=== PATIENT | male | born 1950 | race Caucasian/White ===

== ENCOUNTER → 2016-11-13 | Outpatient (CLI) | payer MEDICARE, OTHER ==
--- NOTE | 2016-11-13 12:08 | FL ---
EXAMINATION TYPE: FL barium swallow w video DATE OF EXAM: 11/13/2016 MODIFIED SWALLOW / DEGLUTITION STUDY CLINICAL HISTORY: Dysphagia. History of throat cancer surgically treated 3 years ago with completed c hemotherapy one year ago. TECHNIQUE: Deglutition study is performed utilizing thin liquid barium, honey and nectar thick liqui d barium, barium thick applesauce, and barium coated cracker. A total of 1 minute 54 seconds of fluor oscopic time was utilized during procedure. COMPARISON: None. FINDINGS: The oral and pharyngeal phases show satisfactory initiation with poor epiglottis inversion with all modalities tested. Normal mastication is seen with solid modalities tested. There is singl e episode of deep penetration with thin liquid barium that clears rapidly. No aspiration is evident w ith any modality tested. There is mild to severe pharyngeal residue appreciated more prominent with m ore viscous modalities. Some improvement is seen with chin tuck procedure in the residuals. IMPRESSION: No aspiration is evident. Mild to severe pharyngeal residuals noted. Poor propagation may be related to treated neoplasm or COPD. Please refer to speech therapist notes for further details i f necessary.
== END | disposition home or self-care (01) ==
LOC: RADFLMAIN 11:15
PROVIDERS: ATTEND Otolaryngology
DX: R13.10 Dysphagia, unspecified (principal)
CPT/HCPCS: 74230

== ENCOUNTER → 2017-05-04 | Outpatient (CLI) | payer MEDICARE, OTHER ==
--- NOTE | 2017-05-05 13:17 | PE ---
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 Patient received chemotherapy, unsure of date. Previous mouth and throat biopsy also report ed by the patient. TECHNIQUE: Following the intravenous administration of 13.08 mCi of F-18 FDG, coned-down images of the head and neck are performed followed by whole body images from the skull base to the midthigh. I mages are reviewed on the computer in the coronal, axial, and sagittal planes. Reconstructed rotatin g images are created on independent workstation and reviewed on the computer. A localization and at tenuation correction CT is performed in conjunction with the PET scan. Glucose level: 109 mg/dL CTDI: 2.1 / 1.58 mGy DLP: 63.3 / 140.16 mGy-cm COMPARISON: 02/26/2015 FINDINGS: PET: There is new nodularity within the right vallecular space suspected to represent lingual tonsillar hy pertrophy as there is no abnormal FDG uptake seen here. Symmetric uptake at the vocal folds likely product of phonation. No abnormal FDG uptake seen within t he neck. Normal physiologic FDG uptake throughout the chest, abdomen, and pelvis. ATTENUATION CORRECTION CT: Mild mucosal thickening throughout the ethmoid air cells. Mastoid air cells appear clear. No cervical adenopathy seen. There is some stranding throughout the subcutaneous fat of the neck suggesting post radiation therapy change. No cervical lymphadenopathy. Heart is normal size without pericardial effusion. Mild coronary vessel calcifications are present in remarkable for coronary artery disease. Aorta is normal caliber with mild atherosclerotic calcifica tions and conventional arch vessel branching anatomy. No thoracic lymphadenopathy. Mild centrilobular emphysema. Biapical pleural parenchymal scarring. Mild diffuse bronchial wall thic kening. Strandy atelectasis posterior left base. No consolidation or pleural effusion. Trace bilatera l gynecomastia. No dilated small bowel, free fluid, free air. [id number] atherosclerotic calcifications within the abdominal aorta. Limited intra-abdominal fat makes assessment for lymphadenopathy difficult. No o bvious abnormality seen. Moderate stool burden. Bladder urine distended. Pelvic phleboliths. Prostate gland appears mildly enlarged measuring 4.2 cm. Bones: Degenerative changes lower lumbar spine and endplate spondylosis throughout the remaining lumb ar spine as well as the mid and lower thoracic spine. IMPRESSION: 1. New nodularity within the right vallecular space. Suspect lingual tonsillar hypertrophy as there i s no discrete hypermetabolism here. The lack of FDG uptake makes neoplasm unlikely. Recommend direct visualization to confirm. 2. Otherwise, no CT or metabolic evidence for locoregional recurrence or metastatic disease. 3. Incidental: COPD with mild emphysema and moderate stool burden.
== END | disposition home or self-care (01) ==
LOC: RADPETMAIN 08:51
PROVIDERS: ATTEND Otolaryngology
DX: C13.9 Malignant neoplasm of hypopharynx, unspecified (principal); R91.8 Other nonspecific abnormal finding of lung field; J43.9 Emphysema, unspecified
CPT/HCPCS: 78815; A9552

== ENCOUNTER 2017-05-07 08:59 | Emergency (ER) | payer MEDICARE, OTHER ==
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
[2017-05-07 12:06] VITALS: BP 146/75; PULSE 71; RESP 18; TEMP 97.9
== END 2017-05-07 12:06 | disposition home or self-care (01) ==
LOC: EC 08:59
DX: S20.219A Contusion of unspecified front wall of thorax, initial encounter (principal); S80.811A Abrasion, right lower leg, initial encounter; M47.812 Spondylosis without myelopathy or radiculopathy, cervical region; M54.5 Low back pain; J43.9 Emphysema, unspecified; F32.9 Major depressive disorder, single episode, unspecified; F17.200 Nicotine dependence, unspecified, uncomplicated; Z79.51 Long term (current) use of inhaled steroids; Z79.899 Other long term (current) drug therapy; Z91.030 Bee allergy status; Z85.819 Personal history of malignant neoplasm of unspecified site of lip, oral cavity, and pharynx; Z98.890 Other specified postprocedural states; V69.40XA Driver of heavy transport vehicle injured in collision with unspecified motor vehicles in traffic accident, initial encounter; Y92.410 Unspecified street and highway as the place of occurrence of the external cause
CPT/HCPCS: 71020; 72100; 72125; 99284

== ENCOUNTER → 2018-02-22 | Outpatient (CLI) | payer MEDICARE, OTHER ==
--- NOTE | 2018-02-25 17:19 | PE ---
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 Localization and attenuation correction CT scan was also performed. Small [id number] im aging performed through the neck. FINDINGS: Head and neck: There is no evident adenopathy on the noncontrast CT. No suspicious hypermet abolic uptake. Inflammatory change noted in the ethmoid air cells. CHEST: Apical pleural scarring is present. Emphysematous changes are present in the upper lobes. No e vident lung mass or suspicious hypermetabolic uptake. No mediastinal, axillary, or hilar adenopathy. Coronary artery calcification is present. Abdomen pelvis: No evident retroperitoneal or liver mass. No suspicious hypermetabolic uptake. There is no evident ascites. Aorta shows atheromatous changes. Uptake in the right colon felt likely to be physiologic but is indeterminate Osseous structures are within normal limits. Degenerative disc changes are present in the lower lumba r spine. No suspicious hypermetabolic uptake. IMPRESSION: No suspicious hypermetabolic uptake evident. Sinus disease. Emphysema. Additional finding s above.
== END | disposition home or self-care (01) ==
LOC: RADPETMAIN 09:30
PROVIDERS: ATTEND Otolaryngology
DX: C13.9 Malignant neoplasm of hypopharynx, unspecified (principal); J43.9 Emphysema, unspecified; J32.9 Chronic sinusitis, unspecified; J92.9 Pleural plaque without asbestos; I25.10 Atherosclerotic heart disease of native coronary artery without angina pectoris; I70.0 Atherosclerosis of aorta; M51.36 Other intervertebral disc degeneration, lumbar region
CPT/HCPCS: 78815; A9552

== ENCOUNTER → 2018-03-19 | Outpatient (CLI) | payer MEDICARE, OTHER ==
[2018-03-19 16:31] LABS: HCT 39.3 % (39.0-53.0); HGB 13.2 gm/dL (13.0-17.5); MCH 33.8 pg (25.0-35.0); MCHC 33.6 g/dL (31.0-37.0); MCV 100.4 fL (80.0-100.0); Mean Platelet Volume 6.9; Platelet Count 196 k/uL (150-450); RBC 3.91 m/uL (4.30-5.90)
== END | disposition home or self-care (01) ==
LOC: LABWHC1 15:07
PROVIDERS: ATTEND Otolaryngology
DX: R53.83 Other fatigue (principal)
CPT/HCPCS: 36415; 84443; 85027

== ENCOUNTER → 2019-03-14 | Outpatient (CLI) | payer MEDICARE, OTHER ==
--- NOTE | 2019-03-16 07:27 | PE ---
EXAMINATION TYPE: PET CT fusion skull to thigh DATE OF EXAM: 03/14/2019 COMPARISON: Prior PET/CT February 22, 2018 and older studies HISTORY: Throat cancer diagnosed 2016 TECHNIQUE: Following the intravenous administration of 12.18 mCi of F-18 FDG, whole body images are performed from the skull base to the midthigh. Images are reviewed on the computer in the coronal, a xial, and sagittal planes. Reconstructed rotating images are created on independent workstation and reviewed on the computer. A noncontrast CT is performed in conjunction with the PET scan. Dedicated PET CT of the neck is also performed. SCAN: Subsequent Scan FINDINGS: SKULL BASE AND NECK: No new areas of suspicious hypermetabolic uptake. CHEST, MEDIASTINUM, AND HILAR REGION: No new areas of abnormal hypermetabolic uptake. ABDOMEN AND PELVIS: No new areas of abnormal hypermetabolic uptake. OSSEOUS STRUCTURES: No new areas of abnormal hypermetabolic uptake. OTHER CT: Mild calcified plaque right carotid bulb. Moderate emphysematous change with moderate right greater than left biapical pleural/parenchymal scar ring. Ascending aortic aneurysm up to 3.7 cm axial image 96. Moderate calcified plaque of the abdominal aorta. Multilevel spurring in the spine. Facet arthropathy lower lumbar levels. IMPRESSION: No new areas of suspicious hypermetabolic uptake to suggest malignant recurrence.
== END | disposition home or self-care (01) ==
LOC: RADPETMAIN 10:13
PROVIDERS: ATTEND Otolaryngology
DX: C13.8 Malignant neoplasm of overlapping sites of hypopharynx (principal); Z85.21 Personal history of malignant neoplasm of larynx
CPT/HCPCS: 78815; A9552

== ENCOUNTER → 2020-02-25 | Outpatient (CLI) | payer MEDICARE, OTHER ==
[2020-02-25 16:47] LABS: African American GFR (CKD) >90 (>60 ml/min/1.73 sqM); Blood Urea Nitrogen 17 mg/dL (9-20); Non-African American GFR(CKD) 88 (>60 ml/min/1.73 sqM)
--- NOTE | 2020-02-26 07:59 | CT ---
EXAMINATION TYPE: CT soft tissue neck w con DATE OF EXAM: 02/25/2020 COMPARISON: Cervical spine 05/07/2017 HISTORY: Right sided neck mass x2. BB placed on regions of interest., History of throat cancer, hypop harynx CT DLP: 296.1 mGycm CONTRAST: Patient injected with 100ml mL of Isovue 300. TECHNIQUE: Axial images at 3 mm thick sections. Reconstructed images in the coronal plane and sagitt al plane are reviewed. FINDINGS: Limited CT sections are obtained the lung apices. There is some thickening of the posterio r right apex measuring 1.2 cm. Series 3 image 28. Bilateral apical scarring may be present. These fin dings appear present and stable from 03/14/2019 localization PET/CT. There is an irregular density measuring 0.5 cm in the posterior right upper lobe. Series 3 image 21. This appears to be developing from the comparison PET/CT of 03/14/2019. Reevaluation with PET CT is re commended. On the more superior anterior BB chen the right submandibular gland appears unremarkable. The more p osterior inferior BB is along the anterior margin of the sternocleidomastoid muscle. No underlying caban spicious abnormality is evident. There may be a small lymph node measuring 0.7 cm just anterior to th e muscle is slightly more inferior to the BB which may be the palpable abnormality. Series [address] neck: The torus tubarius and fossa of Rosenmuller are normal. [employer] spaces are normal. Para nasal sinuses and mastoid air cells are clear. Parotid glands appear small but symmetrical. Submandibular glands, are normal. Parapharyngeal space s are normal. No suspicious enlarged adenopathy is evident. The hypopharynx appears within normal limits. Vocal cord level appear symmetrical. There is a 0.7 cm ill-defined hypodensity within the mid right lobe thyroid. Correlation with thyroi d ultrasound is recommended. Degenerative changes are within the cervical spine. Loss of disc height and vacuum disc phenomenon is noted. IMPRESSIONS: 1. Superior BB correlates with a normal-appearing right submandibular gland. The second more inferior posterior BB potentially could be associated with a small lymph node. 2. Increasing area of distortion within the superior posterior right apex. Reevaluation with PET CT i s recommended. 3. 0.7 cm hypodensity within the mid right lobe thyroid. Correlation with thyroid ultrasound is recom mended.
== END | disposition home or self-care (01) ==
LOC: RADCTMAIN 16:05
PROVIDERS: ATTEND Otolaryngology
DX: E07.89 Other specified disorders of thyroid (principal); J39.2 Other diseases of pharynx
CPT/HCPCS: 82565; 84520; 70491; 36415; Q9967

== ENCOUNTER 2020-03-02 06:00 | Day surgery (SDC) | payer MEDICARE, OTHER ==
[2020-02-29 15:49] VITALS: BMI 18.0
[~2020-03-02 06:00] MED LIST: DEXAMETHASONE SOD PHOSPHATE 4 MG/ML 1 ML VIAL IV ONE; FAMOTIDINE 20 MG/2 ML VIAL IV ONE; HYDROmorphone 0.5 MG/0.5 ML SYRINGE IVP PRN; LACTATED RINGERS 1,000 ML IV SCH; MIDAZOLAM 2 MG/2 ML VIAL IV PRN; ONDANSETRON 4 MG/2 ML VIAL IVP ONE; fentaNYL (PF) 50 MCG/ML 2 ML AMP IV PRN; fentaNYL (PF) 50 MCG/ML 2 ML AMP IVP PRN
[2020-03-02] MEDS ORDERED: LIDOCAINE 1% (10MG/ML) FOR IV START INTRADERMA ONE (07:01)
[2020-03-02] MEDS ORDERED: PROPOFOL 10 MG/ML 20 ML VIAL IV ONE (07:21)
[2020-03-02] MEDS ORDERED: LIDOCAINE 1% INJ 10MG/ML (20 ML MDV) ONE (07:21)
[2020-03-02] MEDS ORDERED: MIDAZOLAM 2 MG/2 ML VIAL ONE (07:21)
[2020-03-02] MEDS ORDERED: DEXAMETHASONE SOD PHOSPHATE 10 MG/ML 1 ML VIAL ONE (07:21)
--- NOTE | 2020-03-02 08:02 | P.OP ---
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 Over the last 4-6 weeks the patient has had some chronic right-sided sore throat which is worse with swallowing Operative Findings: Irregular erythematous mildly exophytic lesion right piriform sinus especially anteriorly approximate 1.2 cm Description of Procedure: The patient was brought in the operative suite and placed in supine position. Patient underwent induction of general anesthesia with oral endotracheal intubation without difficulty. The patient was prepped and draped in usual aseptic fashion. A gum guard was placed. Direct laryngoscopy was performed with systematic evaluation of the base of tongue locular both piriform sinuses post cricoid area and endolarynx. The only abnormality noted was in the right piriform sinus and the laryngoscope was placed so that this could be well visualized and the laryngoscope was placed in suspension. The Zeiss microscope was brought into position and multiple biopsies were taken under microscopy of the right piriform sinus. Hemostasis was gained spontaneously. The larynx was suctioned and laryngoscope and gum guard were removed. The patient was allowed to emerge from general anesthesia having tolerated procedure well was extubated in the operating suite and transferred to postop recovery area in satisfactory
[2020-03-02 08:18] VITALS: TEMP 97.7
[2020-03-02 08:56] VITALS: RESP 16
[2020-03-02 09:13] VITALS: BP 123/56; PULSE 51
== END 2020-03-02 09:42 | disposition home or self-care (01) ==
LOC: OR 06:00
PROVIDERS: ATTEND Otolaryngology
DX: C12 Malignant neoplasm of pyriform sinus (principal); D38.0 Neoplasm of uncertain behavior of larynx; Z92.21 Personal history of antineoplastic chemotherapy; J43.9 Emphysema, unspecified; K21.9 Gastro-esophageal reflux disease without esophagitis; M19.90 Unspecified osteoarthritis, unspecified site; F17.210 Nicotine dependence, cigarettes, uncomplicated; Z98.890 Other specified postprocedural states; Z79.82 Long term (current) use of aspirin; Z79.51 Long term (current) use of inhaled steroids; Z79.891 Long term (current) use of opiate analgesic; Z79.52 Long term (current) use of systemic steroids; Z79.899 Other long term (current) drug therapy; Z82.3 Family history of stroke
CPT/HCPCS: 88305; 31536; J2250; J1100; J2405; J0690; J2001; J2704

== ENCOUNTER → 2020-03-18 | Outpatient (CLI) | payer MEDICARE, OTHER ==
--- NOTE | 2020-03-18 15:26 | PE ---
EXAMINATION TYPE: PET CT fusion skull to thigh DATE OF EXAM: 03/18/2020 COMPARISON: Prior PET/CT March 14, 2019 and older studies. Most recent neck CT February 25, 2020 HISTORY: Throat cancer progress study. Originally diagnosed 2016 with surgical and chemotherapy treat ment. TECHNIQUE: Following the intravenous administration of 11.87 mCi of F-18 FDG, whole body images are performed from the skull base to the midthigh. Images are reviewed on the computer in the coronal, a xial, and sagittal planes. Reconstructed rotating images are created on independent workstation and reviewed on the computer. A noncontrast CT is performed in conjunction with the PET scan. Dedicated CT imaging of the neck. SCAN: Subsequent Scan FINDINGS: SKULL BASE AND NECK: Corresponding to most recent CT there is new hypermetabolic roughly 8 mm focus right false vocal cord posterior aspect axial image 68, max SUV is 7.27. Just superior to this involv ing the lateral aspect of the right hypopharynx at level of hyoid bone involving inferior aspect of t he piriform sinus there is new hypermetabolic area, no definitive CT correlate axial image 65, max CORNELL V is 7.73. CHEST, MEDIASTINUM, AND HILAR REGION: No new areas of abnormal hypermetabolic uptake. ABDOMEN AND PELVIS: No new areas of abnormal hypermetabolic uptake. Normal excretion. OSSEOUS STRUCTURES: No new areas of abnormal hypermetabolic uptake. OTHER CT: Mild calcified plaque right carotid bulb. Moderate emphysematous change with moderate right greater than left biapical pleural/parenchymal scar ring. Ascending aortic aneurysm up to 3.7 cm axial image 96. Moderate calcified plaque of the abdominal aorta. Multilevel spurring in the spine. Facet arthropathy lower lumbar levels. IMPRESSION: Recurrent neoplasm in the neck as detailed above. Recurrent hypermetabolic right neck mag nopathy. Possible new mucosal lesion or recurrence inferior right piriform sinus, advise direct visua lization to further assess.
== END | disposition home or self-care (01) ==
LOC: RADPETMAIN 11:58
PROVIDERS: ATTEND Otolaryngology
DX: C13.8 Malignant neoplasm of overlapping sites of hypopharynx (principal); Z85.21 Personal history of malignant neoplasm of larynx; R59.0 Localized enlarged lymph nodes
CPT/HCPCS: 78815; A9552

== ENCOUNTER 2020-12-27 08:00 | Day surgery (SDC) | payer MEDICARE, OTHER ==
[2020-12-27 08:32] LABS: Mean Platelet Volume 7.3; Platelet Count 187 k/uL (150-450)
[2020-12-27 08:38] LABS: Prothrombin Time 10.3 sec (9.0-12.0)
[2020-12-27 08:42] VITALS: BP 139/58; PULSE 60; RESP 18; TEMP 98.1
[2020-12-27] MEDS ORDERED: ALPRAZolam 0.5 MG TAB PO STA (09:01)
== END 2020-12-27 09:45 | disposition home or self-care (01) ==
LOC: RADPROMAIN 08:00
PROVIDERS: ATTEND Radiology Radiation Oncology
DX: C13.9 Malignant neoplasm of hypopharynx, unspecified (principal); Z53.8 Procedure and treatment not carried out for other reasons
CPT/HCPCS: 36415; 85049; 85610

== ENCOUNTER 2021-02-24 09:10 | Day surgery (SDC) | payer MEDICARE, OTHER ==
[2021-02-24] MEDS ORDERED: ALPRAZolam 0.25 MG TAB PO PRN (09:34)
[2021-02-24 09:55] VITALS: TEMP 97.6
[2021-02-24 11:28] VITALS: BP 131/63; PULSE 56; RESP 14
--- NOTE | 2021-02-24 11:33 | US ---
EXAMINATION TYPE: US biopsy lymph node, US FNA first lesion DATE OF EXAM: 02/24/2021 HISTORY: Throat cancer, palpable and painful right neck mass. FINDINGS: Maximal barrier technique was utilized. Hand hygiene achieved with soap and water and alco hol-based hand rub. The skin overlying a suitable path to the patient's mass in the right neck was lo calized with ultrasound and the overlying skin prepped and draped. Ultrasound was utilized with ster ile technique. Lidocaine was used for local anesthesia. 3 passes under direct ultrasound guidance w ere made with a 25-gauge needle and aspirated specimen submitted to cytology. An additional pass was made with a 23-gauge needle using similar technique. A skin samuel was made with a scalpel. A 20-gauge were biopsy needle was advanced under direct ultrasound guidance and core specimen obtained of the m ass. 5 passes were made in total. Specimen submitted in formalin to Pathology. Following the proced ure, hemostasis achieved and the patient is discharged in stable condition without complication. IMPRESSION:STATUS POST ULTRASOUND GUIDED CORE BIOPSY AND FINE-NEEDLE ASPIRATION OF right neck MASS, P ATHOLOGY IS PENDING. THIS PROCEDURE IS PERFORMED BY THE UNDERSIGNED.
== END 2021-02-24 11:28 | disposition home or self-care (01) ==
LOC: RADPROMAIN 09:10
PROVIDERS: ATTEND Otolaryngology
DX: R22.1 Localized swelling, mass and lump, neck (principal); Z85.818 Personal history of malignant neoplasm of other sites of lip, oral cavity, and pharynx; Z92.21 Personal history of antineoplastic chemotherapy; Z92.3 Personal history of irradiation
CPT/HCPCS: 10005; 38505; 76942; 88173; 88305; 88341; 88342

== ENCOUNTER → 2021-03-23 | Outpatient (CLI) | payer MEDICARE, OTHER ==
[2021-03-23 13:10] LABS: African American GFR (CKD) >90 (>60 ml/min/1.73 sqM); Blood Urea Nitrogen 23 mg/dL (9-20); Non-African American GFR(CKD) >90 (>60 ml/min/1.73 sqM)
--- NOTE | 2021-03-23 15:59 | CT ---
EXAMINATION TYPE: CT soft tissue neck w con DATE OF EXAM: 03/23/2021 COMPARISON: 02/25/2020 HISTORY: malignant neoplasm of hyopharynx, swelling to Rt side of neck CT DLP: 280.3 mGycm CONTRAST: Patient injected with 100 mL of Isovue 300. TECHNIQUE: Axial images at 3 mm thick sections. Reconstructed images in the coronal plane and sagitt al plane are reviewed. FINDINGS: Limited CT sections are obtained the lung apices. There is an apparent 1.8 x 1.4 cm spicul ated density at the right apex. Additional thickening at the right posterior apex is again evident. At the level marked by the BB in the right neck there is a subtle hypodensity measuring 2.4 cm corres ponding to that fullness. Enlarged lymph node and abscess are within the differential. No thick claudia d abscess is identified. Relationship with the sternocleidomastoid muscle is unclear. Retrocrural mus cular is suspected but difficult to confirm CT neck: The torus tubarius and fossa of Rosenmuller are normal. Fiction [employer] Author spaces are normal. Para nasal sinuses and mastoid air cells are clear. Parotid glands appear normal and symmetrical. Submandibular glands, are normal. Parapharyngeal spac es are normal. Suspicious enlarged lymphadenopathy is not otherwise apparent. The hypopharynx appears within normal limits. Vocal cord level appear symmetrical. There is a hypodense lesion within the right lobe thyroid. There is exaggeration of thoracic kyphosis and cervical lordosis. Mucosal thickening is through ethmo id air cells. IMPRESSIONS: 1. There is an ill-defined enlarged 2.4 x 2.0 x 3.0 cm hypodensity within the right neck at the level marked by the BB. Abnormal lymph node is suspected. Differential could include abscess formation
== END | disposition home or self-care (01) ==
LOC: RADCTMAIN 12:30
PROVIDERS: ATTEND Otolaryngology
DX: C13.9 Malignant neoplasm of hypopharynx, unspecified (principal)
CPT/HCPCS: 82565; 84520; 70491; 36415; Q9967

== ENCOUNTER → 2021-03-24 | Outpatient (CLI) | payer MEDICARE, OTHER ==
--- NOTE | 2021-03-30 11:46 | PE ---
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 Localization and attenuation correction CT scan was performed. Correlation prior nuclear medicine PET/CT 03/18/2020. No small sijae-cl-hlsj imaging was performed. Chest and neck: There is been some interval progression in abnormal uptake seen within the neck and c hest. At the level of the hyoid bone there is a probable necrotic node present which is increased in size measuring approximately 2 cm, SUV 5.1 along the level just deep to the sternocleidomastoid muscl e. Previously identified uptake present along the piriform sinus on the right is no longer seen. Ther e is some lucency present within the supraclavicular soft tissues, the previously identified noted th is level is not identified with certainty. Mild asymmetry at the level of the vocal cords is noted gr eater on the left than on the right posteriorly possibly due to formation. There is a new soft tissue mass with spiculated margins in the right upper lobe, spiculations extending to the posterior and ap ical pleural margin, mass measures approximately 14 mm, SUV is 3.3. There is no pleural or pericardia l effusion. Calcified right lower lobe nodule is present, axial image 134. ABDOMEN: There is no evident liver mass. No suspicious uptake. There is no ascites or retroperitoneal adenopathy. High dense material within the gallbladder may be due to tumefactive sludge or possibly vicarious contrast from prior CT. Aorta shows atheromatous change. No evident pelvic adenopathy. Osseous structures show no suspicious uptake. IMPRESSION: New spiculated mass in the right upper lobe. Interval increase in size in patient's adeno onelia in the right neck
== END | disposition home or self-care (01) ==
LOC: RADPETMAIN 17:15
PROVIDERS: ATTEND Otolaryngology
DX: C13.8 Malignant neoplasm of overlapping sites of hypopharynx (principal)
CPT/HCPCS: 78815; A9552